=== PATIENT | female | born 1960 | race Caucasian/White ===

== ENCOUNTER → 2016-07-24 | Outpatient (CLI) | payer SELFPAY ==
[2016-07-24 17:16] LABS: HEMATOCRIT 44.1 % (37.0-47.0); HEMOGLOBIN 15.2 g/dL (12.0-16.0); MEAN CORPUSCULAR HEMOGLOBIN 32.4 PG (27-31); MEAN CORPUSCULAR HGB CONC 34.5 g/dL (33-37); MEAN PLATELET VOLUME 9.6 FL (7.4-12.2); RDW COEFFICIENT OF VARIATION 12.8 % (11.5-14.5); RED BLOOD COUNT 4.69 10^6/uL (4.20-5.40); WHITE BLOOD COUNT 7.82 10^3/uL (4.8-10.8)
[2016-07-24 17:32] LABS: ASPARTATE AMINO TRANSFERASE 22 IU/L (8-39); BILIRUBIN,TOTAL 0.4 mg/dL (0.3-1.2); BLOOD UREA NITROGEN 17 mg/dL (7-22); BUN/CREATININE RATIO 24.28 (6-20); CALCIUM 9.9 mg/dL (8.7-10.7); CHLORIDE 107 meq/L (98-112); CREATININE 0.7 mg/dL (0.50-1.20); EST GLOMERULAR FILTRATION > 60 (>60 ml/min/1.73m(2)); GLUCOSE 120 mg/dL (78-110); POTASSIUM 4.3 meq/L (3.8-5.2); SODIUM 143 meq/L (135-145); TOTAL PROTEIN 7.1 g/dL (6.1-8.0)
== END ==
LOC: MOB LAB 16:08
PROVIDERS: ATTEND Family Medicine
DX: R55 Syncope and collapse (principal); E03.9 Hypothyroidism, unspecified; R51 Headache; Z72.0 Tobacco use
CPT/HCPCS: 36415; 80053; 84443; 85027; 86140

== ENCOUNTER → 2016-08-02 | Outpatient (CLI) | payer SELFPAY ==
--- NOTE | 2016-08-06 16:03 | HOLTER ---
[facility] Interpretive Statements No diary returned. Lots of Artifact. Forty eight hour holter done for syncopy. Thirty seven hours of recording were analysed. There were [id number] beats seen with 14 PACs noted including 3 pairs and 2, 3-4 beat runs with maximum rate of 108. The maximum heart rate was sinus tachycardia at 138 during daylight hours with minimum rate of 51 and average rate of 85.There was no ventricular ectopy. The longest R-R interval was 1.84 seconds associated with occassional nonconducted P waves. There were no abnormal ST-T waves or QT intervals. No diary was kept or symptoms recorded. IMP: Abnormal holter study with rare PACs and several nonconducted P waves with maximum R-R intervals of 1.84 seconds. No symptoms were recorded and no diary kept. If no other etiology of syncopy found and symptoms are rare, consider event recorder or loop recorder. Electronically Signed On 08-08-16 16:07:46 [facility] by Ceferino Isaacs [id number]
== END ==
LOC: RT 15:23
PROVIDERS: ATTEND Family Medicine
DX: R55 Syncope and collapse (principal); F17.210 Nicotine dependence, cigarettes, uncomplicated
CPT/HCPCS: 93225; 93226; 93227

== ENCOUNTER 2016-08-06 07:48 | Day surgery (SDC) | payer SELFPAY ==
[~2016-08-06 07:48] MED LIST: LIDOCAINE W/ SODIUM BICARB 0.5 ML SYR ONE; Lactated Ringers 1,000 ML PRIMARY IV ONE
[2016-08-06] MEDS ORDERED: LORazepam 2 MG/1 ML VIAL ONE (08:34)
[2016-08-06] MEDS ORDERED: LIDOCAINE HCL 1%/EPI 1:100,000 - 20 ML VIAL ONE (09:18)
[2016-08-06] MEDS ORDERED: fentaNYL Inj 100 MCG/2 ML VIAL ONE (09:26)
[2016-08-06] MEDS ORDERED: Lactated Ringers 1,000 ML PRIMARY IV ONE (10:12)
--- NOTE | 2016-08-06 10:14 | GEN.OPNOTE ---
Operative Note Surgery Date: 08/06/16 Preoperative Diagnosis: Left-sided headaches. (Rule out temporal arteritis) Postoperative Diagnosis: Same as preop Procedure: Report artery biopsy Surgeon: Vazquez Jorgensen MD Anesthesia Provider: Nicole Castillo CRNA Anesthesia Type: Local, MAC Estimated Blood Loss (mL): 0 Fluids: LR please see anesthesia notes in EMR Pathology: Temporal artery Indications: Patient is having headaches some numbness of the left side of her head. Elevated sedimentation rate. Need a biopsy temporal artery to rule out temporal arteritis Operative Summary: Patient is given IV sedation. Placed in supine position. Prepped draped sterile fashion. Timeout performed per protocols. Infiltrative 0.5% Marcaine with epinephrine for local anesthetic 1 mL was used. Small incision is made over palpable temporal artery. Hemostased and left cautery. Blunt dissection is carried down to the temporal artery. The temporal artery was clamped and a segment approximately 1.52 cm was removed. Using 3-0 Vicryl the artery was tied. The distal portion of the cut artery slipped out of the high. It retracted the point cannot be identified anymore. I watched for approximately 5 minutes is no active bleeding. I feel that more damage be done by looking for this artery and leaving it. Therefore we closed the wound 4-0 Monocryl simple interrupted subcuticular suture. Pressure dressing was then applied.
[2016-08-06] MEDS ORDERED: oxyCODONE IR Tab 5 MG TAB PO ONE ×2 (10:43→10:52)
[2016-08-06 13:33] VITALS: RESP 16; TEMP 98.4
== END 2016-08-06 12:24 | disposition home or self-care (01) ==
LOC: SDSC 07:48
PROVIDERS: ATTEND Surgery
DX: R51 Headache (principal)
CPT/HCPCS: 37609; J2704; J3010; J2060; J7120

== ENCOUNTER → 2016-08-09 | Outpatient (CLI) | payer SELFPAY ==
--- NOTE | 2016-08-09 16:14 | DI ---
DUPLEX COLOR DOPPLER CAROTID ULTRASOUND, 08/09/2016 2:45 PM: Clinical History: Near syncope. Previous Exam: None at this facility. Technique: 2D real time imaging is supplemented with duplex color doppler ultrasound imaging. RIGHT CAROTID ARTERY: 2D real time imaging of the right carotid system shows minimal intimal thickening of the distal commo n carotid artery without evidence of plaque disease in the carotid bulb or in the internal or externa l carotid arteries. Peak systolic velocities through the right common carotid, the external carotid, and the internal carotid are 88 cm/s, 130 cm/s, and 89 cm/s, respectively. The values for the right c ommon carotid artery and the right internal carotid artery correspond to diameter stenoses of 0-49%. The value for the external carotid artery corresponds to a diameter stenosis of 50-74%, but closer to 50%. LEFT CAROTID ARTERY: 2D real time imaging of the left carotid system shows minimal intimal thickening of the common caroti d artery without obvious plaque disease in the carotid bulb or the internal or external carotid arter ies. Peak systolic velocities through the left common carotid, the external carotid, and the internal carotid are 90 cm/s, 85 cm/s, and 103 cm/s, respectively. All values correspond to diameter stenoses of 0-49%. VERTEBRAL ARTERIES: There is antegrade flow through both vertebral arteries Cardiac rhythm is regular. Peak systolic [place] through the visualized portions of the right and left vertebral arteries are 50 cm/s and 63 cm /s, respectively. These values correspond to diameter stenoses of 0-49%. Readin. There is no hemodynamically significant stenosis of either carotid system. 2. There is antegrade flow through both vertebral arteries. Cardiac rhythm is regular.
== END ==
LOC: US 14:41
PROVIDERS: ATTEND Family Medicine
DX: R55 Syncope and collapse (principal)
CPT/HCPCS: 93880

== ENCOUNTER → 2016-09-05 | Outpatient (CLI) | payer SELFPAY ==
--- NOTE | 2016-09-05 13:07 | DI ---
MRI BRAIN SCAN WITHOUT CONTRAST, 09/05/2016 9:15 AM: Clinical History: Temporal headaches. Previous Exam: None at this facility. Sequences: Sagittal T1; Axial RAVEN T2 and FLAIR. Axial diffusion weighted images with ADC mapping were also performed. The 4th, 3rd, and lateral ventricles are of normal size, shape, position, and contour for this patien t's age. There are multiple focal areas of hyperintensity located in the left cerebral hemisphere maynor cassandra in the parietal lobe and one located posterior to the left occipital trigone a similar but edgar y small 2 mm lesion is located in the right parietal lobe. These all are located in the white matter in range in size between 3 mm to as large as 7 mm in diameter. These findings may represent very ear ly small vessel ischemic change. Diffusion weighted imaging with ADC mapping is normal. There are no extracerebral mantels or shift of the midline structures. The paranasal sinuses are normal. Readin. There are white matter hyperintensities primarily in the left parietal lobe but also located in t he left parietal lobe. These may be related to early changes of small vessel ischemic disease. The re mainder of the examination is normal. 2. Diffusion weighted imaging with ADC mapping is normal.
== END ==
LOC: MRI 08:51
PROVIDERS: ATTEND Family Medicine
DX: R51 Headache (principal)
CPT/HCPCS: 70551

== ENCOUNTER → 2016-09-07 | Outpatient (CLI) | payer OTHER | LOC: LAB 13:19 | PROVIDERS: ATTEND Specialist | DX: R51 Headache (principal) | CPT/HCPCS: 82384 ==

== ENCOUNTER → 2016-11-05 | Outpatient (CLI) | payer OTHER ==
--- NOTE | 2016-11-05 14:51 | DI ---
XR KNEE CMPT 4 OR MORE VWS,11/05/2016 9:55 AM: Clinical History: Acute right knee pain. Previous Exam: June 25, 2016 Findings: 4 views of the right knee are obtained, and demonstrate anatomic alignment without fractures. The keily rounding soft tissues are unremarkable. Impression: Normal right knee.
== END ==
LOC: ORTHO 10:21
PROVIDERS: ATTEND Orthopaedic Surgery
DX: M25.561 Pain in right knee (principal); Z98.890 Other specified postprocedural states; W10.9XXA Fall (on) (from) unspecified stairs and steps, initial encounter
CPT/HCPCS: 73564

== ENCOUNTER → 2016-11-27 | Outpatient (CLI) | payer OTHER | LOC: MMPC 09:00 | PROVIDERS: ATTEND Family Medicine | DX: G44.319 Acute post-traumatic headache, not intractable (principal) | CPT/HCPCS: 99213; G0463 ==

== ENCOUNTER → 2017-01-23 | Outpatient (CLI) | payer OTHER | LOC: MMPC 09:00 | PROVIDERS: ATTEND Family Medicine | DX: J30.1 Allergic rhinitis due to pollen (principal); Z89.512 Acquired absence of left leg below knee | CPT/HCPCS: 99213; G0463 ==

== ENCOUNTER → 2017-02-01 | Outpatient (CLI) | payer OTHER | LOC: MMPC 09:00 | DX: B02.8 Zoster with other complications (principal) | CPT/HCPCS: 99213; G0463 ==

== ENCOUNTER → 2017-02-20 | Outpatient (CLI) | payer OTHER | LOC: MMPC 09:00 | PROVIDERS: ATTEND Family Medicine | DX: B02.9 Zoster without complications (principal); R10.84 Generalized abdominal pain; K21.9 Gastro-esophageal reflux disease without esophagitis | CPT/HCPCS: 99214; G0463 ==

== ENCOUNTER → 2017-02-28 | Outpatient (CLI) | payer OTHER ==
--- NOTE | 2017-02-28 17:24 | DI ---
CT ABDOMEN SCAN WITHOUT AND WITH IV CONTRAST, 02/28/2017 7:53 AM : Clinical History: Organomegaly. Epigastric pain. 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 Previous Exam: None at this facility. Scans are performed from the lower lung bases through the liver and kidneys without and with IV contr ast. Sagittal and coronal reformatted images are generated. 75 ml of Isovue 300 was injected IV. Post contrast scans were obtained during the early arterial phase and the delayed portal venous phase. The lung bases are clear. The liver is normal. The patient is status post cholecystectomy and the com mon bile duct measures approximately 5 mm. Both adrenal glands, the pancreas, and the spleen are norm al. Both kidneys are normal in size, shape, position and contour. There is no hydronephrosis or hydro ureter. No renal or ureteral calculi are present. There are no abnormal retrocrural or periaortic nod es. There is no ascites. The abdominal aorta is normal. There is a stent present at the origin of the SMA and a portion of the stent extends into the aortic lumen. Contrast is visualized within the sten t and in the SMA there is narrowing of the vessel at the distal aspect of the stent but quantitative estimation of the severity narrowing is not possible because of the stent. The celiac axis is normal. READIN. Normal CT abdomen scan. There is no evidence of hepatosplenomegaly or of an upper abdominal mass. 2. There is a stent in the SMA and a portion protrudes into the aorta. The SMA is densely opacified, and contrast is visualized within the stent. There may be narrowing at the junction of the distal en d of the stent in the SMA, but accurate assessment of the severity of narrowing is not possible becau se of the metallic stent. The celiac axis is widely patent.
== END ==
LOC: CT 07:49
PROVIDERS: ATTEND Family Medicine
DX: R19.00 Intra-abdominal and pelvic swelling, mass and lump, unspecified site (principal); R10.13 Epigastric pain
CPT/HCPCS: 74170; 82565; 84520